=== PATIENT | female | born 1980 ===

== ENCOUNTER → 2017-09-10 | Day surgery (SDC) | payer OTHER ==
[~2017-09-10] MED LIST: BUPIVACAINE HCL 0.5 % INJ/PF 30 ML SDV ONE; METHYLPREDNISOLONE ACETATE INJ 40 MG/1 ML ML ONE
--- NOTE | 2017-09-10 16:02 | RADIOLOGY REPORT (SQ) ---
EXAM DESCRIPTION: INJECT/ASPIR HIP/SHLDR/KNEE; FLUORO/NEEDLE PLACEMENT COMPLETED DATE/TIME: 09/10/2017 2:53 pm REASON FOR STUDY: UNILATERAL PRIMARY OSTEOARTHRITIS, LEFT HIP M16.12 UNILATERAL PRIMARY OSTEOARTHRI TIS, LEFT HIP COMPARISON: None. FLUOROSCOPY TIME: 50 seconds 1 digital radiographic images saved to PACS. LIMITATIONS: None. PROCEDURE: SITE OF INJECTION: Left hip LOCALIZING CONTRAST TYPE AND DOSE: 2 mL of Isovue-300 MEDICATION TYPE AND DOSE: 80 mg of Depo-Medrol, 6 mL of 0.5% bupivacaine Using local anesthesia and sterile technique with fluoroscopic guidance, a 22 gauge spinal needle was advanced into the joint. Iodinated contrast was injected to verify intraarticular placement. This w as followed by therapeutic injection of the indicated medications. The needle was removed. There we re no immediate complications. Preprocedure pain level: 7/10. Postprocedure pain level: /10. IMPRESSION: THERAPEUTIC INJECTION OF THE left hip JOINT ABOVE. COMMENT: Patient medication list reviewed: Yes- Quality ID# [id number]:Eligible professional attests to doc umenting in the medical record they obtained, updated, or reviewed the patient's current medications. . Quality ID 145: Final reports for procedures using fluoroscopy that document radiation exposure keely bessy, or exposure time and number of fluorographic images (if radiation exposure indices are not avail able) TECHNICAL DOCUMENTATION: JOB ID: [id number] [employer]- All Rights Reserved Reading location - IP/workstation name: [email or web address]
--- NOTE | 2017-09-10 16:02 | RADIOLOGY REPORT (SQ) ---
EXAM DESCRIPTION: INJECT/ASPIR HIP/SHLDR/KNEE; FLUORO/NEEDLE PLACEMENT COMPLETED DATE/TIME: 09/10/2017 2:53 pm REASON FOR STUDY: UNILATERAL PRIMARY OSTEOARTHRITIS, LEFT HIP M16.12 UNILATERAL PRIMARY OSTEOARTHRI TIS, LEFT HIP COMPARISON: None. FLUOROSCOPY TIME: 50 seconds 1 digital radiographic images saved to PACS. LIMITATIONS: None. PROCEDURE: SITE OF INJECTION: Left hip LOCALIZING CONTRAST TYPE AND DOSE: 2 mL of Isovue-300 MEDICATION TYPE AND DOSE: 80 mg of Depo-Medrol, 6 mL of 0.5% bupivacaine Using local anesthesia and sterile technique with fluoroscopic guidance, a 22 gauge spinal needle was advanced into the joint. Iodinated contrast was injected to verify intraarticular placement. This w as followed by therapeutic injection of the indicated medications. The needle was removed. There we re no immediate complications. Preprocedure pain level: 7/10. Postprocedure pain level: /10. IMPRESSION: THERAPEUTIC INJECTION OF THE left hip JOINT ABOVE. COMMENT: Patient medication list reviewed: Yes- Quality ID# [id number]:Eligible professional attests to doc umenting in the medical record they obtained, updated, or reviewed the patient's current medications. . Quality ID 145: Final reports for procedures using fluoroscopy that document radiation exposure keely bessy, or exposure time and number of fluorographic images (if radiation exposure indices are not avail able) TECHNICAL DOCUMENTATION: JOB ID: [id number] [employer] All Rights Reserved Reading location - IP/workstation name: [email or web address]
== END ==
LOC: RAD 13:57
PROVIDERS: ATTEND Orthopaedic Surgery Sports Medicine
DX: M16.12 Unilateral primary osteoarthritis, left hip (principal)
CPT/HCPCS: 20610; 77002; J3490; J1020